=== PATIENT | male | born 1970 | race Caucasian/White ===

== ENCOUNTER → 2023-11-04 09:43 | Outpatient (BNVA) | payer BC, SELFPAY | PROVIDERS: PCP Family Medicine Adult Medicine; Visit Provider Family Medicine Adult Medicine | DX: K58.9 Irritable bowel syndrome, unspecified (principal); R06.2 Wheezing; K42.9 Umbilical hernia without obstruction or gangrene; Z87.891 Personal history of nicotine dependence | CPT/HCPCS: 80053; 80061; 84443; 85025; G0103 ==

== ENCOUNTER 2024-02-04 06:05 | Day surgery (SDC) | payer BC, SELFPAY ==
[2024-02-04] VITALS (16 sets, daily range): BP systolic 100–150; BP diastolic 53–101; PULSE 59–78; RESP 17–20; TEMP 36.1–36.7; O2SAT 90–98; BMI 36.0
[2024-02-04] MEDS: sodium chloride 0.9% 1,000 ML 30 ML IV (06:38)
--- NOTE | 2024-02-04 06:41 | ANES.PREANE2 ---
Pre-Anesthetic Assessment Height/Weight: Height 1.7 m Weight 104.326 kg Temp Pulse Resp BP Pulse Ox O2 Del Method 97 F L 71 18 107/92 96 Room Air 02/04/24 06:21 02/04/24 06:21 02/04/24 06:21 02/04/24 06:21 02/04/24 06:21 02/04/24 06:31 Operation Date: 02/04/24 07:55 Proposed Procedures p Lap recurrent incisional hernia repair w/mesh 68863, K43.2(Not Applicable) - Abbe Todd DO Familial anesthetic complications: None Was Beta Sonia taken within 24 hours: N/A Was Clonidine taken within 24 hours: N/A Last intake: Intake Last Liquid Date 02/03/24 Last Liquid Time 20:30 Last Solid Date 02/03/24 Last Solid Time 20:30 Social No alcohol and No tobacco former smoker Exam alert, oriented x 3, clear to auscultation bilaterally and regular rate & rhythm Airway Mallampati: Class II Dentition: chipped and other (missing) Anesthetic Plan ASA status: 2 Anesthesia: General Risk of > 500 ml blood loss (7ml/kg in children): No Medications/Allergies Home Medications Medication Instructions Recorded Confirmed Last Taken Type No Known Home Medications 02/03/24 02/03/24 Unknown History Allergies Allergy/AdvReac Type Severity Reaction Status Date / Time Penicillins Allergy rash Verified 02/04/24 06:21 Current Medications Generic Name Dose Route Start Last Admin Trade Name Freq PRN Reason Stop Dose Admin Sodium Chloride 1,000 mls @ 30 mls/hr 02/04/24 06:15 02/04/24 06:38 Sodium Chloride 0.9% IV 02/05/24 06:14 30 mls/hr .Q24H LOLA Administration PFSH Anesthesia Medical History Rash and other nonspecific skin eruption Urticaria Wheezing Former smoker, stopped smoking many years ago From age 16 to 44 (quit) giving a approximately 28-year history of smoking greater than 1 pack/day prior to that time. IBS (irritable colon syndrome) Umbilical hernia without mention of obstruction or gangrene No pertinent past medical history Surgical History History of cholecystectomy H/O umbilical hernia repair Family History Father Osteoporosis Mother Brain cancer Social History Smoking and tobacco/nicotine status: former use of tobacco/nicotine Quit status (tobacco/nicotine): has quit using Alcohol intake: current Alcohol intake frequency: few times a week Alcohol type: beer Substance/Drug Use: never Data Anesthesia Cardiac Studies: No Data to Display
[2024-02-04] MEDS: vancomycin 1,500 MG/300 ML PIGGYBACK 200 MG IV (06:57)
--- NOTE | 2024-02-04 06:59 | W.PM.OPSUD ---
Surgery/Procedure H&P Update DATE OF PROCEDURE: February 04, 2024 DATE H&P PERFORMED: 01/28/24 H&P UPDATE INFORMATION: I have reviewed H&P completed within last 30 days, I have examined patient prior to procedure and No changes to prior documentation PLANNED PROCEDURE: Operation Date: 02/04/24 07:55 Proposed Procedures p Lap recurrent incisional hernia repair w/mesh 97400, K43.2(Not Applicable) - Abbe Todd DO
[2024-02-04] MEDS: BUPivacaine 0.25% INJ 10 mL 5 ML INJECTION (08:03)
[2024-02-04] MEDS: lidocaine-epi 2% PF 1:200,000 20 mL SDV 5 ML XX (08:03)
[2024-02-04] MEDS: HYDROmorphone 1 mg/mL INJ 1 mL 0.5 MG IVP ×3 (08:32→09:04)
--- NOTE | 2024-02-04 08:51 | P.OP_ITS ---
Operative Report Date of procedure: February 04, 2024 Pre-op diagnosis: Recurrent incisional hernia Post-op diagnosis: same Procedure done: Laparoscopic repair of recurrent incisional hernia with mesh Implants: 6 inch round Ventralight mesh Specimens removed/disposition: None Surgeon: Abbe Todd DO Anesthesia: General and Local Estimated blood loss (mL): 5 Complications: None apparent Brief History: This is a very pleasant 53-year-old gentleman who came to my office with a recurrent incisional hernia. Laparoscopic repair with mesh was indicated. The risks and benefits were explained and documented. Procedure: Patient was wheeled into the operative room and placed on the OR table in a supine position. Abdomen was inspected prepped and draped in usual sterile fashion. Time-out was performed and all present were in agreement. A 15 blade scalp was used to make a 5 millimeter incision left upper quadrant. A Veress needle was placed into the incision and intra-abdominal insufflation was brought to 15 millimeters of mercury. A 12 millimeter trocar was placed into the left lower quadrant. The energy but device was then used to cut out the hernia sac. Hernia defect measured 2 cm in diameter. A 6 inch ventral light mesh was placed into the abdomen and brought up through the umbilicus using an the Franklyn- Neo. The mesh was then tacked in place in a double crown fashion. The skeleton of the mesh was removed via the left lower quadrant. The hernia sac was then removed from the abdomen via the left lower quadrant. The left lower quadrant port site was closed with an 0 Vicryl suture in a Franklyn-Neo in a [id number] fashion. Incisions were closed with 4 O Vicryl in a subcuticular interrupted fashion. Skin glue was applied. A dressing that included cotton balls and a Tegaderm was placed over the umbilicus. Patient tolerated the procedure well.
--- NOTE | 2024-02-04 15:03 | ANE.PACU2 ---
Inpatient post-anesthesia follow up: Airway intact: Yes Vital signs: Temperature 97 F Pulse Rate 74 Respiratory Rate 18 Blood Pressure 129/75 Pulse Oximetry 94 Oxygen Delivery Me thod Nasal Cannula Oxygen Flow Rate 2 Fraction of Inspir ed Oxygen 2 Hydration adequate: Yes Nausea and vomiting: No Pain level: 1 Mental status: Baseline
== END 2024-02-04 10:46 | disposition home or self-care (01) ==
PROVIDERS: PCP Family Medicine Adult Medicine; Visit Provider Surgery
PROC: 0WQF4ZZ Repair Abdominal Wall, Percutaneous Endoscopic Approach (ICD-10-PCS; CPT 49613; principal; 2024-02-04 07:55)
DX: K43.2 Incisional hernia without obstruction or gangrene (principal); Z87.891 Personal history of nicotine dependence
CPT/HCPCS: 49613; J1100; J1170; J1885; J2250; J2405; J2704; J3010; J3370; J3490; J7030